=== PATIENT | male | born 2000 | race Caucasian/White ===

== ENCOUNTER 2024-01-25 11:29 | Emergency (ER) | payer OTHER ==
[2024-01-25 12:13] VITALS: RESP 18; TEMP 97.9; BMI 36.2
[2024-01-25 12:32] VITALS: BP 134/92; PULSE 68
== END 2024-01-25 12:41 | disposition home or self-care (01) ==
LOC: JERFT 11:29
DX: J00 Acute nasopharyngitis [common cold] (principal); R09.81 Nasal congestion; R05.9 Cough, unspecified; Z20.822 Contact with and (suspected) exposure to COVID-19
CPT/HCPCS: 0241U-QW; 99283-25